=== PATIENT | female | born 1960 | race Caucasian/White ===

== ENCOUNTER 2016-08-05 19:51 | Emergency (ER) | payer OTHER ==
[2016-08-05 19:56] VITALS: BP 172/92
--- NOTE | 2016-08-05 20:07 | ED EAR COMPLAINT ---
History of Present Illness General Chief Complaint: Ear Complaints Stated Complaint: "EAR PAIN" Source: patient Exam Limitations: no limitations Vital Signs & Intake/Output Vital Signs & Intake/Output Vital Signs Date Time Temp Pulse Resp B/P Pulse O2 O2 Flow FiO2 Ox Delivery Rate 08/06 1955 98.5 78 20 172/92 99 Allergies Coded Allergies: No Known Allergies (08/05/16) Reconcile Medications Ciprofloxacin HCl/Dexameth (Ciprodex Otic Suspension) 0.3 %-0.1 % DROPS.SUSP 4 GTT OT BID otitis externa Naproxen (Naprosyn) 500 MG TABLET 1 TAB PO BID pain Triage Note: CO L EAR PAIN X 3 DAYS NO DRAINAGE NO FEVER. Triage Nurses Notes Reviewed? yes Onset: Gradual Duration: day(s): (3) Timing: no prior history Injury Environment: home Severity: mild Severity Numbers: 4 No Modifying Factors: none HPI: Patient is a 56-year-old female presenting to the emergency department with chief complaint of left ear pain times. Pain is mild, achy throbbing worse with palpation. Denies any change in hearing. Denies any discharge from the ear. No trauma to the ear. Has not been taking anything to help with pain. Denies any recent congestion or cough. No chest pain palpitations or shortness of breath. Pain does not radiate. (LOWELL HAMMONDS) Past History Travel History Traveled to [place] past 21 day No Medical History Any Pertinent Medical History? see below for history Neurological: NONE EENT: NONE Cardiovascular: NONE Respiratory: NONE Gastrointestinal: NONE Hepatic: NONE Renal: NONE Musculoskeletal: NONE Psychiatric: NONE Endocrine: NONE Surgical History Surgical History: non-contributory Psychosocial History What is your primary language Citizen [place] Tobacco Use: Quit <30 days ago Family History Hx Contributory? No (LOWELL HAMMONDS) Review of Systems Review of Systems Constitutional: Reports: no symptoms. Comments Review of systems: See HPI, All other systems negative. Constitutional, no chills fever or weight loss HEENT: No visual changes no sore throat no congestion Cardiovascular: No chest pain ,palpitation Skin, no jaundice no rashes Respiratory: No dyspnea cough sputum or hemoptysis GI: No nausea no vomiting Muscle skeletal: no back pain, no neck pain, Neurologic: No numbness no no vivar Psych: No stress anxiety or depression,. Heme/endocrine: No bruising no bleeding no polyuria or polydipsia Immunology: No splenectomy or history of AIDS (LOWELL HAMMONDS) Physical Exam Physical Exam General Appearance: well developed/nourished, no apparent distress, alert, awake , comfortable Ears: Left: erythema. Bilateral: Tympanic normal. Comments: Well-developed well-nourished person in no acute distress HEENT:Pupils equally round and reactive to light and accommodation. Nose is atraumatic. External auditory canal on the left is erythematous, tympanic membrane intact bilaterally with no erythema. Right auditory canal clear. Pharynx normal. No swelling or edema. Neck: Supple, no lymphadenopathy, normal range of motion without pain or tenderness Cardiovascular: Regular rate and rhythms no murmurs rubs or gallops, normal JVP Respiratory: Chest nontender. No respiratory distress.breath sounds clear to auscultation bilaterally Extremity: No edema Neuro: Alert oriented x3, motor sensory normal, cranial nerves II through XII grossly intact. Skin: No appreciable rash on exposed skin, skin is warm and dry. Psych: Mood and affect is normal, memory and judgment is normal. (LOWELL HAMMONDS) Progress Differential Diagnoses I considered the following diagnoses in my evaluation of the patient: Otitis externa, otitis media, upper respiratory infection, viral labyrinthitis, cervical infection Plan of Care: Patient likely has a urinary infection. She'll be treated symptomatically with Ciprodex antibiotic drops. Initial ED EKG: none (LOWELL HAMMONDS) Departure Departure Time of Disposition: 2014 Disposition: HOME OR SELF CARE Condition: Stable Clinical Impression Primary Impression: Otitis externa Qualifiers: Otitis externa type: unspecified type Laterality: left Chronicity: acute Qualified Code: H60.502 - Unspecified acute noninfective otitis externa, left ear Secondary Impressions: Earache Referrals: PATIENT HAS NO PRIMARY CARE DR (PCP/Family) Additional Instructions: Follow-up with here primary care physician counseling appointment. Use eardrops as prescribed. Take naproxen as prescribed up with pain. Return for worsening symptoms or concerns. Departure Forms: Customer Survey General Discharge Information Prescriptions: Current Visit Scripts Ciprofloxacin HCl/Dexameth (Ciprodex Otic Suspension) 4 GTT OT BID #1 BOT Naproxen (Naprosyn) 1 TAB PO BID #20 TAB (LOWELL HAMMONDS) PA/HOME IMPROVEMENT INSTALLER Co-Sign Statement Statement: ED Attending supervision documentation- [] I saw and evaluated the patient. I have also reviewed all the pertinent lab results and diagnostic results. I agree with the findings and the plan of care as documented in the PA's/HOME IMPROVEMENT INSTALLER's documentation. [x] I have reviewed the ED Record and agree with the PA's/HOME IMPROVEMENT INSTALLER's documentation. [] Additions or exceptions (if any) to the PAs/HOME IMPROVEMENT INSTALLER's note and plan are summarized below: [] (DENISA SMALL DO
[2016-08-05] MEDS ORDERED: CIPRODEX OTIC7.5 ML OT (20:18)
[2016-08-05] MEDS ORDERED: NAPROSYN500 M1 PO (20:18)
== END 2016-08-05 20:26 ==
LOC: ERH 19:51
DX: H60.92 Unspecified otitis externa, left ear (principal); H92.02 Otalgia, left ear; Z87.891 Personal history of nicotine dependence